=== PATIENT | male | born 1970 | race Caucasian/White ===

== ENCOUNTER 2022-12-24 08:25 | Outpatient (CLI) | payer SELFPAY | END 2022-12-24 08:26 | disposition home or self-care (01) | PROVIDERS: PCP Physician Assistant Medical; Visit Provider Physician Assistant Medical | DX: Z00.00 Encounter for general adult medical examination without abnormal findings (principal); E03.0 Congenital hypothyroidism with diffuse goiter; E78.2 Mixed hyperlipidemia; R71.8 Other abnormality of red blood cells | CPT/HCPCS: 80053; 80061; 84153; 84443; 86703; 86803 ==

== ENCOUNTER 2025-01-01 09:59 | Outpatient (CLI) | payer OTHER, SELFPAY | END 2025-01-01 10:00 | disposition home or self-care (01) | LOC: NFLDREF 01-02 07:34 | PROVIDERS: PCP Physician Assistant Medical; Referring Provider Physician Assistant Medical; Visit Provider Family Medicine | DX: R03.0 Elevated blood-pressure reading, without diagnosis of hypertension (principal); E78.2 Mixed hyperlipidemia; R71.8 Other abnormality of red blood cells; Z13.29 Encounter for screening for other suspected endocrine disorder; Z12.5 Encounter for screening for malignant neoplasm of prostate | CPT/HCPCS: 80053; 80061; 84270; 84402; 84403; G0103 ==